=== PATIENT | female | born 1970 | race Caucasian/White ===

== ENCOUNTER 2021-10-09 08:54 | Emergency (ER) | payer OTHER, MEDICAID, SELFPAY ==
--- NOTE | 2021-10-09 09:10 | PC.NURSE ---
1st attempt to locate pt
--- NOTE | 2021-10-09 09:20 | PC.NURSE ---
2nd attempt to locate pt
--- NOTE | 2021-10-09 09:42 | PC.NURSE ---
3rd attempt to locate pt
[2021-10-09 09:44] VITALS: BP 110/72; PULSE 79; RESP 14; TEMP 35.6; O2SAT 98; BMI 25.0
--- NOTE | 2021-10-09 11:58 | DI.CT.S_ITS ---
PROCEDURE: CT HEAD/BRAIN WO CON INDICATIONS: dizzy headache TECHNIQUE: Noncontrast 4.5 mm thick angled axial sections acquired from the foramen magnum to the vertex, with coronal and sagittal reformats. For radiation dose reduction, the following was used: automated exposure control, adjustment of mA and/or kV according to patient size. COMPARISON: None. FINDINGS: Image quality: Excellent. CSF spaces: Basal cisterns are patent. No extra-axial fluid collections. Ventricles are normal in size and shape. Brain: No midline shift. No intracranial masses or hemorrhage. Bailon-white matter interface is normal. Skull and face: Calvarium and visualized facial bones are intact, without suspicious lesions. Sinuses: Visualized sinuses and mastoids are clear. IMPRESSION: No acute cardiopulmonary abnormality Dictated by: Jono Rolle M.D. on 10/09/2021 at 11:14 Approved by: Jono Rolle M.D. on 10/09/2021 at 11:16
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
[2021-10-09 13:10] LABS: Add Manual Diff / Slide Review NO; Basophils Absolute Auto 100 /uL (0-100); Basophils Percent Auto 0.7 % (0-2); Eosinophils Absolute Auto 100 /uL (0-450); Hematocrit 43.2 % (36-46); Hemoglobin 14.5 g/dL (12.0-16.0); Lymphocytes Absolute Auto 1500 /uL (1100-4500); Lymphocytes Percent Auto 15.9 % (25-40); Mean Corpuscular HGB Conc 33.6 % (30-36); Mean Corpuscular Hemoglobin 31.5 PG (26-34); Monocytes Absolute Auto 400 /uL (0-900); Monocytes Percent Auto 3.9 % (3-14); Neutrophils Absolute Auto 7300 /uL (1500-7000); Neutrophils Percent Auto 78.5 % (50-75); Platelet Count 291 X10^3/uL (150-400); Red Cell Distribution Width 13.3 % (11.6-14.8); White Blood Cell Count 9.2 X10^3/uL (4.5-11.0)
[2021-10-09 13:18] LABS: Alanine Aminotransferase 14 IU/L (<35); Albumin 4.4 g/dL (3.5-5.0); Albumin Globulin Ratio 1.4 (1.0-2.8); Alkaline Phosphatase 65 U/L (38-126); Aspartate Aminotransferase 18 IU/L (14-36); BUN Creatinine Ratio 29.3 (6-22); Bilirubin Total 0.4 mg/dL (0.2-1.3); Blood Urea Nitrogen 22 mg/dL (7-17); Calcium 9.1 mg/dL (8.4-10.2); Carbon Dioxide 27 mmol/L (22-32); Chloride 106 mmol/L (98-107); Creatine Kinase 32 U/L (30-135); Estimated Glomerular Filt Rate > 60 mL/min (>60); Ethanol (ETOH) < 10 mg/dL; Globulin 3.1 g/dL (1.7-4.1); Glucose 116 mg/dL (70-100); HEMOLYSIS < 15 (0-50); Lipase 31 U/L (23-300); Sodium 140 mmol/L (137-145); Total Protein 7.5 g/dL (6.3-8.2)
[2021-10-09 13:29] LABS: Troponin I < 0.012 ng/mL (0.01-0.034)
--- NOTE | 2021-10-09 14:14 | CM.SWNOTE ---
UNCLAIMED PROPERTY OFFICER Assessment Note UNCLAIMED PROPERTY OFFICER receives consult and enters room to meet with patient. Patient is 51 y/o female who presents to the ED due to concern for dizziness and Dementia, patient endorses pain in her neck and head. Patient endorses hx of Dementia and TBI, and states that she moved from [facility] to [place] a year ago. Patient endorses dizziness, memory loss, depression, loneliness and pain since Covid started. Patient denies local supports and states that her adult children and family do not live near by but she can always call them. Patient endorses vague SI, denies plans and endorses that it stems from wanting the pain to end and not having anyone nearby feeding into her loneliness. UNCLAIMED PROPERTY OFFICER discusses phone calls with family and friends and encourages patient to seek MH provider. 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 Patient endorses limited sleep at night and has been trying different night time regimens to assist with sleep. Patient states that she stopped drinking ETOH one month ago in effort to address her concerns but states that she continues to have dizziness and pain in her neck and head. Patient endorses that she does not have a current PCP and is interested in PCP. UNCLAIMED PROPERTY OFFICER calls [facility] ([address] [facility]) and is able to schedule ED f/u and establish care PCP appt with Dr. Stallworth for Tuesday10/16/21 at 4pm check in. UNCLAIMED PROPERTY OFFICER provides this information with patient who indicates agreement and understanding. It is the opinion of this UNCLAIMED PROPERTY OFFICER that patient is safe to d/c to home when medically clear. UNCLAIMED PROPERTY OFFICER reviews the above with ED provider Dr. Diaz who indicates agreement and understanding. Plan: Patient to d/c to home when medically clear, patient to f/u with PCP appt with Dr. Stallworth on Tuesday10/16/21 at [address] [facility]
[2021-10-09 14:19] VITALS: BP 101/59; PULSE 71; O2SAT 96
== END 2021-10-09 14:20 | disposition home or self-care (01) ==
PROVIDERS: Emergency Provider Emergency Medicine
DX: R42 Dizziness and giddiness (principal); M54.2 Cervicalgia
CPT/HCPCS: 70450; 80053; 80320; 82550; 83690; 84484; 85025; 93005; 93010; 99281; 99284